=== PATIENT | female | born 1985 | race Caucasian/White ===

== ENCOUNTER 2019-04-17 15:44 | Outpatient (RCR) | payer BC, SELFPAY ==
[2019-04-17 16:12] VITALS: BP 120/68; PULSE 99
== END 2019-05-07 07:13 | disposition home or self-care (01) ==
LOC: ANHOBOP 15:44
PROVIDERS: Visit Provider Obstetrics & Gynecology
DX: P59.9 Neonatal jaundice, unspecified (principal)
CPT/HCPCS: 59025

== ENCOUNTER 2019-04-17 15:46 | Outpatient (RCR) | payer OTHER, SELFPAY ==
[2019-02-08 10:07] LABS: Hematocrit 37.2 % (37.0-47.0); Hemoglobin 12.9 g/dL (12.0-15.0)
[2019-02-08 10:13] LABS: Glucose 1 Hour PP 50gm Dose 154 mg/dL
[2019-02-08 10:54] LABS: HIV 1/2 Ab P24 Ag Result Negative (Negative)
[2019-02-09] MEDS: RHO(D) IMMUNE GLOBULIN 300 MCG SYRINGE IM (08:58)
[2019-02-09 09:41] LABS: Rapid Plasma Reagin Non-Reactive (NonReactive)
== END 2019-05-09 23:59 | disposition home or self-care (01) ==
LOC: ANHLAB 15:46
PROVIDERS: Visit Provider Advanced Practice Midwife
DX: Z36.89 Encounter for other specified antenatal screening (principal); Z29.13 Encounter for prophylactic Rho(D) immune globulin; O36.0990 Maternal care for other rhesus isoimmunization, unspecified trimester, not applicable or unspecified; Z3A.00 Weeks of gestation of pregnancy not specified
CPT/HCPCS: 36415; 82947; 85014; 85018; 86592; 86703; 90384; 96372; G0432; J2790

== ENCOUNTER 2019-04-20 12:20 | Outpatient (CLI) | payer BC, SELFPAY ==
[2019-04-20 12:50] VITALS: BP 126/83; PULSE 103; TEMP 36.6
[2019-04-20 13:00] VITALS: BP 121/78
[2019-04-20 13:02] LABS: Basophils Percent Auto 0.3 % (0.2-1.2); Eosinophils Absolute Auto 0.1 K/mm3 (0-0.3); Eosinophils Percent Auto 1.1 % (0-4.4); Hematocrit 38.9 % (37.0-47.0); Hemoglobin 13.2 g/dL (12.0-15.0); Immature Granulocyte Absolute 0.04 K/mm3 (0.00-0.031); Immature Granulocyte Percent A 0.4 % (0-0.5); Lymphocytes Percent Auto 19.3 % (18.3-44.2); Mean Corpuscular HGB Conc 33.9 g/dl (32-36); Mean Corpuscular Volume 91.3 fl (80-100); Mean Platelet Volume 10.9 fl (7.4-10.4); Monocytes Absolute Auto 0.7 K/mm3 (0.1-0.6); Monocytes Percent Auto 7.9 % (2.6-8.5); Neutrophils Absolute Auto 6.6 K/mm3 (1.3-6.7); Platelet Count Result 246 k/mm3 (150-375); Red Blood Count 4.26 M/mm3 (4.2-5.4); Red Cell Distribution Width 12.3 % (11.5-14.5); White Blood Count 9.3 K/mm3 (4.5-10.0)
[2019-04-20 13:04] LABS: Add Urine Microscopic? NO; Appearance Urine Clear (Clear); Bilirubin Urine Negative (Negative); Blood Urine Negative (Negative); Color Urine Yellow (Yellow); Glucose Urine UA Negative (Negative); Ketones Urine Negative (Negative); Leukocyte Esterase Ur Negative LEU/UL (NEGATIVE); Nitrate Urine Negative (Negative); Protein Urine Negative (Negative); Specific Grav Ur 1.014 (1.001-1.035); Urobilinogen Urine Negative mg/dL (<2.0)
[2019-04-20 13:13] LABS: Creatinine Urine 61.9 mg/dL; Total Protein Urine Random 11 mg/dL
[2019-04-20 13:15] LABS: Alanine Aminotransferase 13 U/L (4-35); Albumin Level 3.2 g/dL (3.5-5.1); Alkaline Phosphatase 166 U/L (38-126); Aspartate Amino Transferase 24 U/L (14-36); Bilirubin,Total 0.3 mg/dL (0.2-1.3); Blood Urea Nitrogen 10 mg/dL (7-17); Calcium 9.2 mg/dL (8.4-10.2); Carbon Dioxide 20 mmol/L (22-30); Chloride 109 mmol/L (98-107); Estimated Glomerular Filt Rate > 60; Glucose 86 mg/dL (65-105); Sodium 133 mmol/L (137-145); Uric Acid 3.6 mg/dL (2.5-7.5)
[2019-04-20 13:30] VITALS: BP 122/77
[2019-04-20 13:35] VITALS: BP 126/83; PULSE 103
--- NOTE | 2019-04-20 14:00 | PC.NURSE ---
1354- called read lab results and bp's, discharge orders received.
--- NOTE | 2019-04-20 14:00 | PC.NURSE ---
1220-Pt was sent from 's office for swelling and elevated bp. PIH orders received.
[2019-04-20 14:08] VITALS: BP 126/83
== END 2019-04-20 14:00 | disposition home or self-care (01) ==
LOC: ANHOBOP 12:27 → ANHOBPP 13:46
PROVIDERS: Family Provider Obstetrics & Gynecology; Visit Provider Obstetrics & Gynecology
DX: O13.9 Gestational [pregnancy-induced] hypertension without significant proteinuria, unspecified trimester (principal); Z3A.00 Weeks of gestation of pregnancy not specified
CPT/HCPCS: 36415; 59025; 80053; 81003; 82570; 84156; 84550; 85025; 87086

== ENCOUNTER 2019-05-02 09:59 | Outpatient (CLI) | payer BC, SELFPAY | END 2019-05-02 11:55 | disposition home or self-care (01) | LOC: ANHOBOP 10:49 | PROVIDERS: Visit Provider Obstetrics & Gynecology | DX: O42.12 Full-term premature rupture of membranes, onset of labor more than 24 hours following rupture (principal); Z3A.00 Weeks of gestation of pregnancy not specified | CPT/HCPCS: 84112 ==

== ENCOUNTER 2019-05-03 07:47 | Observation (INO) | payer BC, SELFPAY ==
[2019-05-03 08:00] VITALS: BMI 37.4
--- NOTE | 2019-05-03 10:34 | OBADM ---
This patient, Janay Song, admitted to the OB room Labor/Delivery/Recovery 107 for observation. Patient/family oriented to hospital policies and general routines including ID bracelet, bed and alarms, visiting hours, pain management, procedures, bathroom and other care routines, personal items, smoking policy, room service/diet, and visiting hours. Patient/Family are encouraged to report perceived risks to care and to ask questions if they do not understand what they are told or what they should do.
--- NOTE | 2019-06-02 20:45 | PM.OBTRLD ---
OB - Triage/Final Diagnosis Visit Information Date of evaluation: 05/05/19 Final Diagnosis (1) Amniotic fluid leaking: Code(s): O42.90 - Premature rupture of membranes, unspecified as to length of time between rupture and onset of labor, unspecified weeks of gestation Status: Acute
== END 2019-05-03 10:23 | disposition home or self-care (01) ==
PROVIDERS: Admitting Provider Obstetrics & Gynecology; Visit Provider Obstetrics & Gynecology
DX: O60.00 Preterm labor without delivery, unspecified trimester (principal); Z3A.00 Weeks of gestation of pregnancy not specified
CPT/HCPCS: G0378; G0379

== ENCOUNTER 2019-05-04 06:13 | Inpatient (IN) | payer BC, SELFPAY ==
[2019-05-04] VITALS (148 sets, daily range): BP systolic 95–155; BP diastolic 55–120; PULSE 64–123; RESP 16; TEMP 36.5–37.8; O2SAT 96–100; BMI 34.8
[2019-05-04 06:47] LABS: Glucose Point of Care 87 (65-105)
[2019-05-04 06:52] LABS: Basophils Percent Auto 0.2 % (0.2-1.2); Eosinophils Absolute Auto 0.2 K/mm3 (0-0.3); Eosinophils Percent Auto 1.8 % (0-4.4); Hematocrit 38.6 % (37.0-47.0); Hemoglobin 13.2 g/dL (12.0-15.0); Immature Granulocyte Absolute 0.07 K/mm3 (0.00-0.031); Immature Granulocyte Percent A 0.5 % (0-0.5); Lymphocytes Percent Auto 12.3 % (18.3-44.2); Mean Corpuscular HGB Conc 34.2 g/dl (32-36); Mean Corpuscular Hemoglobin 30.6 pg (26-34); Mean Corpuscular Volume 89.4 fl (80-100); Mean Platelet Volume 11.7 fl (7.4-10.4); Monocytes Absolute Auto 0.7 K/mm3 (0.1-0.6); Monocytes Percent Auto 5.4 % (2.6-8.5); Neutrophils Absolute Auto 10.4 K/mm3 (1.3-6.7); Neutrophils Percent Auto 79.8 % (45.5-73.1); Platelet Count Result 234 k/mm3 (150-375); Red Blood Count 4.32 M/mm3 (4.2-5.4); Red Cell Distribution Width 12.3 % (11.5-14.5)
[2019-05-04] MEDS: LACTATED RINGERS 1,000 ML 999 ML IV CONT (06:54)
--- NOTE | 2019-05-04 07:15 | LDADM ---
This patient, Janay Song, was admitted to Labor/Delivery/Recovery 108 on 05/04/19 at 06:13. Plans for labor, pain management and were discussed with patient. Patient/family oriented to hospital policies and general routines including ID bracelet, bed and alarms, visiting hours, pain management, procedures, bathroom and other care routines, personal items, smoking policy, room service/diet and guest tray routines, security routines, and visiting hours. Patient/Family are encouraged to report perceived risks to care and to ask questions if they do not understand what they are told or what they should do. See OBIX for further documentation.
--- NOTE | 2019-05-04 07:26 | WPDOBADMIT ---
Obstetrics - Admit Note Admission Note: record reviewed. No pertinent additions to the history and/or any subsequent changes in the physical findings that are not consistent with the expected course of the were found. Pt arrived in labor to , was planned induction today for GDM, on metformin. SVE 6/100/-2, AROM, large amount of meconium fluid. anticipate vaginal delivery Additions to the history and/or subsequent changes in the physical findings follow. None.
[2019-05-04] MEDS: LACTATED RINGERS 1,000 ML 500 ML IV CONT (07:32)
[2019-05-04 08:53] LABS: Glucose Point of Care 88 (65-105)
[2019-05-04] MEDS: OXYTOCIN 30 UNITS/NS 500 ML 30 UNITS/500 ML BAG 6 UNITS IV CONT (09:51)
--- NOTE | 2019-05-04 10:07 | WPDANESEPP ---
Anes - Eval Pre Procedure Procedure: labor epidural Date/Time: 05/04/19 10:07 Pre Op Diagnosis: Induction of Labor Patient Data Age: 33 Gender: F Height: 1.7 m Weight: 100.9 kg Last Vital Signs Temp 36.6 C 05/04/19 08:00 Pulse 88 05/04/19 10:00 BP 106/69 05/04/19 10:00 Pulse Ox 99 05/04/19 10:05 Allergies Allergy/AdvReac Type Severity Reaction Status Date / Time No Known Allergies Allergy Verified 05/02/19 10:59 Home Medications Medication Instructions Recorded Confirmed Type PNV cmb#95-ferrous fumarate-FA 1 tablet PO DAILY 04/14/19 05/04/19 History [] metformin 500 mg PO DAILY 04/14/19 05/04/19 History Laboratory Tests 05/04/19 05/04/19 05/04/19 06:39 06:39 06:39 WBC 13.0 K/mm3 H K/mm3 (4.5-10.0) RBC 4.32 M/mm3 M/mm3 (4.2-5.4) Hgb 13.2 g/dL g/dL (12.0-15.0) Hct 38.6 % % (37.0-47.0) MCV 89.4 fl fl (80-100) MCH 30.6 pg pg (26-34) MCHC 34.2 g/dl g/dl (32-36) RDW 12.3 % % (11.5-14.5) Plt Count 234 k/mm3 k/mm3 (150-375) MPV 11.7 fl H fl (7.4-10.4) Immature Gran % (Auto) 0.5 % % (0-0.5) Neut % (Auto) 79.8 % H % (45.5-73.1) Lymph % (Auto) 12.3 % L % (18.3-44.2) [place] % (Auto) 5.4 % % (2.6-8.5) Eos % (Auto) 1.8 % % (0-4.4) Baso % (Auto) 0.2 % % (0.2-1.2) Lymph # (Auto) 1.60 K/mm3 K/mm3 (0.9-3.2) [place] # (Auto) 0.7 K/mm3 H K/mm3 (0.1-0.6) Eos # (Auto) 0.2 K/mm3 K/mm3 (0-0.3) Baso # (Auto) 0.0 K/mm3 K/mm3 (0.0-0.1) Abs Immat Gran (auto) 0.07 K/mm3 H K/mm3 (0.00-0.031) Absolute Neuts (auto) 10.4 K/mm3 H K/mm3 (1.3-6.7) Absolute Nucleated RBC 0.0 K/mm3 K/mm3 (0.0-0.012) Nucleated RBC % 0.0 % % (0.0-0.2) POC Capillary Glucose RPR Pending Blood Type A Negative Antibody Screen Negative 05/04/19 05/04/19 06:41 08:51 WBC RBC Hgb Hct MCV MCH MCHC RDW Plt Count MPV Immature Gran % (Auto) Neut % (Auto) Lymph % (Auto) [place] % (Auto) Eos % (Auto) Baso % (Auto) Lymph # (Auto) [place] # (Auto) Eos # (Auto) Baso # (Auto) Abs Immat Gran (auto) Absolute Neuts (auto) Absolute Nucleated RBC Nucleated RBC % POC Capillary Glucose 87 mg/dl mg/dl 88 mg/dl mg/dl (65-105) (65-105) RPR Blood Type Antibody Screen Patient hx anesthesia problems: none Family hx anesthesia problems: none [facility] Family History Family History (System 05/02/19 @ 10:59 by Dee Dee Justice) Other Unknown family medical history Social History Social History (System 05/02/19 @ 10:59 by Dee Dee Justice) Smoking status: Never smoker Second hand tobacco smoke exposure: No Substance use: never Spiritual care concerns: No Exam Day of Procedure 05/04/19 10:07 Patient weight: obese Heart: regular rate and rhythm Lungs: normal air movement Airway: Mallampati scale class II Neurological: alert and oriented
[2019-05-04] MEDS: LACTATED RINGERS 1,000 ML 125 ML IV CONT (10:36)
[2019-05-04 10:45] LABS: Glucose Point of Care 63 (65-105)
[2019-05-04 12:43] LABS: Glucose Point of Care 57 (65-105)
[2019-05-04 13:44] LABS: Glucose Point of Care 74 (65-105)
--- NOTE | 2019-05-04 16:17 | PM.OBPRVD ---
OB - Delivery Note Procedure Delivery date: 05/04/19 events: Gestational Diabetes and Induced HTN Intrapartal events: Febrile Induction method: AROM and per pitocin protocol Delivery monitor: external FHT and external uterine Route of delivery: Episiotomy description: Left Mediolateral Laceration description: Labial (right and left) Delivery repair: vicryl Specimen: Yes Estimated blood loss (mL): 482 Anesthesia type: Epidural Disposition: other () Narrative: head delivered and unable to deliver past cheecks, LML and posterior shoulder reached and baby slowly delivered body. baby to warmer for meconium and skin to skin prior my departure [place] Baby Date of : 05/04/19 Time of : 15:45 Weeks of gestation at delivery: 38 Infant gender: Female Weight (pounds): 9 Weight (ounces): 6 presentation: vertex position: Left Occiput Anterior Placenta delivery description: Spontaneous cord vessel description: 3 Vessels and Clamped/Cut score one minute: 8 score five minutes: 9
[2019-05-04] MEDS: OXYTOCIN 30 UNITS/NS 500 ML 30 UNITS/500 ML BAG 125 UNITS IV CONT (16:23)
[2019-05-04] MEDS: IBUPROFEN 600 MG TABLET PO (17:39)
[2019-05-04] MEDS: BENZOCAINE 20% AER SPR (*SP) 56 GM CAN 1 SPRAY TOPICAL (17:40)
[2019-05-04] MEDS: WITCH HAZEL 40 PADS 1 PAD TOPICAL (17:42)
[2019-05-05 05:52] LABS: Hematocrit 30.1 % (37.0-47.0); Hemoglobin 9.9 g/dL (12.0-15.0)
[2019-05-05 08:00] VITALS: BP 114/60; PULSE 101; RESP 18; TEMP 36.4
--- NOTE | 2019-05-05 10:36 | WPDANLDPN2 ---
Anes-Prog Note L&D Date/Time: 05/05/19 10:36 Comfortable throughout: labor and delivery Neuraxial method: epidural Epidural/Spinal procedure site: clean & non-tender Neuro status: Neuro function grossly intact. Cardiovascular status: normal Respiratory status: normal Airway patency: baseline Mental status: baseline Post-Op hydration status: normal Vital Signs: Last Vital Signs Temp 36.8 C 05/04/19 18:55 Pulse 92 05/04/19 18:55 Resp 16 05/04/19 18:55 BP 120/64 05/04/19 18:55 Pulse Ox 100 05/04/19 14:24 I/O: Intake & Output 05/04/19 05/05/19 05/05/19 23:59 07:59 15:59 Intake Total 1999 Balance 1999 Post-procedural complaints: none Patient feedback: Patient satisfied with anesthetic care.
[2019-05-05] MEDS: MULTIVIT/MIN/PREN/FOL AC/IRON TABLET 1 TAB PO (11:01)
[2019-05-05] MEDS: POLYSACCHARIDE IRON COMPLEX 150 MG CAPSULE PO ×2 (11:01→17:51)
[2019-05-05] MEDS: IBUPROFEN 600 MG TABLET PO ×2 (11:01→17:50)
[2019-05-05] MEDS: DOCUSATE SODIUM 100 MG CAPSULE PO ×2 (11:01→17:50)
--- NOTE | 2019-05-05 13:49 | PM.OBPNVD ---
OB - PN: Subj Subjective Date/time seen: 05/05/19 13:49 Patient comments: no complaints, pain well controlled, incisional pain, tolerating diet and flatus present OB - PN: Obj Data Labs CBC & Chem 7: 05/05/19 04:55 Labs: Laboratory Results - last 24 hr 05/05/19 04:55 Hgb 9.9 L D Hct 30.1 L OB - PN A/P Plan day: 1 Plan: routine care Comments: No problems, routine care Time Spent With Patient Time: Total time spent is greater than 50% in coordination of care (as documented) at patient's floor/unit and/or counseling patient: Exam Const: General: comfortable, no acute distress and alert Resp: Effort & Inspection: normal respiratory effort Auscultation: no crackles, no rales and no rhonchi Cardio: Rate: regular rate Heart sounds: no click, no murmurs and no rubs GI: Inspection: non-distended GI Palp: No Tenderness to palpation present (GI) Auscultation: normal bowel sounds Other: Incision - CDI Extrem: General: normal to inspection, no pedal edema and no calf tenderness
[2019-05-05 19:00] VITALS: BP 124/88; PULSE 69; RESP 18; TEMP 36.4; O2SAT 100
--- NOTE | 2019-05-05 23:24 | PC.NURSE ---
Patient viewed the discharge video Mother & Baby Care, The First Two Weeks . Patient was given the opportunity and encouraged to ask questions. Patient verbalized understanding of information shared and has been given the mother/baby guide for home reference.
[2019-05-06 07:35] VITALS: BP 118/75; PULSE 84; RESP 18; TEMP 36.6
[2019-05-06] MEDS: MULTIVIT/MIN/PREN/FOL AC/IRON TABLET 1 TAB PO (08:03)
[2019-05-06] MEDS: DOCUSATE SODIUM 100 MG CAPSULE PO (08:03)
[2019-05-06] MEDS: POLYSACCHARIDE IRON COMPLEX 150 MG CAPSULE PO (08:03)
[2019-05-06] MEDS: IBUPROFEN 600 MG TABLET PO (08:04)
--- NOTE | 2019-05-06 12:47 | PM.OBPNVD ---
OB - PN: Subj Subjective Date/time seen: 05/06/19 12:47 Patient comments: no complaints, pain well controlled and tolerating diet OB - PN: Obj Data Labs CBC & Chem 7: 05/05/19 04:55 OB - PN A/P Plan day: 2 Plan: routine care and discharge home Time Spent With Patient Time: Total time spent is greater than 50% in coordination of care (as documented) at patient's floor/unit and/or counseling patient: Exam Const: General: comfortable and no acute distress Resp: Effort & Inspection: normal respiratory effort Auscultation: no rales, no rhonchi and no wheezes Cardio: Rate: regular rate Heart sounds: no click, no murmurs and no rubs GI: GI Palp: Yes Soft to palpation and No Tenderness to palpation present (GI) Auscultation: normal bowel sounds Extrem: General: normal to inspection, no pedal edema and no calf tenderness
--- NOTE | 2019-05-06 12:49 | PM.OBDSVD ---
DS: Diagnosis Discharge Diagnosis (1) Term delivered: Onset Date: ~04/2019 Code(s): O80 - Encounter for full-term uncomplicated delivery Status: Acute OB - DS: Summary OB Procedures : NST and Ultrasound OB Procedures Intrapartum: Spontaneous Vag Delivery OB Procedures: : None Peripartum Data Infant Delivery Method: Natural Vaginal Status at Discharge Functional status at discharge: independent ambulation Time Spent with Patient Time attestation: Total time spent providing and/or coordinating discharge services: DS: Data Data Completed and Pending Pending studies at discharge: Pending at discharge 05/04/19 15:52 Surgical [PTH] Routine Discharge Plan Discharge Attending physician on discharge: Sherrill Stack Discharging Clinician: Sherrill Stack Patient Disposition: Home, Self-Care Activity: pelvic rest Diet: regular Discharge Instructions: Education: Mom and Baby Guide and Preeclampsia Handout Given to: Mother Follow-Up: Call your delivering provider's office for an appointment to be seen in: 4 Weeks Mom and baby should come [facility] the [facility] for the follow-up appointment. Appointment Date/Time: May 07, 2019 at 9:00 am What to expect at your follow-up visit: Physical Assessment Call [phone] if you are unable to keep your appointment time. BREAST CARE: 1. Wear a snug supportive bra. 2. For engorgement discomfort: Breast Feeding: A. Apply warm moist washcloths B. Express milk as needed to relieve engorgement C. Wear loose clothing Bottle Feeding: A. May apply ice packs 3. For sore nipples: A. Identify correct latch-on B. Apply warm moist washcloths before and after nursing C. Air dry nipples after nursing D. May apply Lansinoh cream to nipples EPISIOTOMY/PERINEAL CARE: 1. Until bleeding stops, use your debby bottle after urinating 2. Change your pad frequently throughout the day 3. You may take sitz baths several times a day (fill your bathtub with warm water and soak for 20 minutes.) Do NOT bathe in the water 4. No tub baths until seen by your physician - You may shower ACTIVITY: 1. Rest as much as possible. 2. Do not exercise or lift anything heavier than your baby (such as laundry or other children.) 3. Avoid stairs or driving as much as possible. 4. Do not put anything into the vagina. No douching, tampons, or sexual activity until seen by physician. NOTIFY PHYSICIAN IF YOU HAVE ANY QUESTIONS OR IF ANY OF THE FOLLOWING SYMPTOMS OCCUR: 1. If your episiotomy becomes red, swollen, or more painful than what you have experienced in the hospital. 2. If your vaginal bleeding becomes foul smelling. 3. If your vaginal bleeding becomes more heavy than a period or if your bleeding changes from pink to bright red. However, you may pass an occasional walnut-sized clot once or twice for the first week . 4. If you experience a sharp, shooting pain in you calves. 5. If you discover a hard, reddened area on your breast or if you experience flu-like symptoms. DIET: 1. Eat regular, well-balanced meals. 2. Drink plenty of fluids daily. If , drink to thirst. Stand Alone Forms: General Discharge Information Follow-up/Referrals: Sherrill Stack MD [Physician] - Discharge Medications: Continued PNV cmb#95-ferrous fumarate-FA [] 28 mg iron- 800 mcg Tablet 1 tablet PO DAILY RF: 0 Discontinued metformin 500 mg Tablet 500 mg PO DAILY RF: 0 Date of admission: 05/04/19 06:13 Primary Care Provider: UNKNOWN,DOCTOR Admitting Provider: Sherrill Stack Attending physician on admission: Sherrill Stack
[2019-05-07 07:28] LABS: Rapid Plasma Reagin Non-Reactive (NonReactive)
[2019-05-07 09:38] VITALS: BP 124/66; PULSE 72; RESP 18; TEMP 36.9
== END 2019-05-06 13:23 | disposition home or self-care (01) | DRG 807 ==
LOC: ANHLDR 06:17 → ANHOB2 19:02
PROVIDERS: Advanced Practice Midwife; Admitting Provider Obstetrics & Gynecology; Visit Provider Obstetrics & Gynecology
DX: O24.425 Gestational diabetes mellitus in childbirth, controlled by oral hypoglycemic drugs (principal); Z37.0 Single live birth; Z3A.39 39 weeks gestation of pregnancy; O77.0 Labor and delivery complicated by meconium in amniotic fluid; O71.82 Other specified trauma to perineum and vulva; O99.214 Obesity complicating childbirth; E66.9 Obesity, unspecified; O13.4 Gestational [pregnancy-induced] hypertension without significant proteinuria, complicating childbirth
CPT/HCPCS: 36415; 85014; 85018; 85025; 86592; 86850; 86900; 86901; 88307; A9270; J2590; J2795; J7120

== ENCOUNTER 2021-01-29 11:18 | Observation (INO) | payer BC, SELFPAY ==
[2021-01-29 11:53] VITALS: BP 124/76; PULSE 86
[2021-01-29 12:00] VITALS: TEMP 36.8
[2021-01-29 12:01] VITALS: BP 113/73; PULSE 78
[2021-01-29 12:30] VITALS: BMI 32.3
--- NOTE | 2021-01-29 12:30 | OBADM ---
This patient, Janay Song, admitted to the OB room 116 at 118 for observation for left upper abdominal pain. Patient/family oriented to hospital policies and general routines including ID bracelet, bed and alarms, visiting hours, pain management, procedures, bathroom and other care routines, personal items, smoking policy, room service/diet, and visiting hours. Patient/Family are encouraged to report perceived risks to care and to ask questions if they do not understand what they are told or what they should do.
[2021-01-29 13:01] VITALS: BP 113/69; PULSE 80
--- NOTE | 2021-03-08 17:07 | PM.OBTRLD ---
OB - Triage/Final Diagnosis Visit Information Comments/Additional reasons for admission: I have assessed the risk for this patient, Janay Song, and determined that she would benefit from observation care. Final Diagnosis (1) Abdominal pain: Code(s): R10.9 - Unspecified abdominal pain Status: Acute
== END 2021-01-29 13:36 | disposition home or self-care (01) ==
PROVIDERS: Admitting Provider Obstetrics & Gynecology; Visit Provider Obstetrics & Gynecology
DX: O26.892 Other specified pregnancy related conditions, second trimester (principal); R10.9 Unspecified abdominal pain; Z3A.22 22 weeks gestation of pregnancy
CPT/HCPCS: G0378; G0379

== ENCOUNTER 2021-03-06 08:06 | Outpatient (RCR) | payer OTHER, SELFPAY ==
[2021-03-06 09:55] LABS: Hemoglobin 13.4 g/dL (12.0-15.0)
[2021-03-06 10:05] LABS: Glucose 1 Hour PP 50gm Dose 119 mg/dL
[2021-03-06 10:45] LABS: HIV 1/2 Ab P24 Ag Result Negative (Negative)
[2021-03-06] MEDS: RHO(D) IMMUNE GLOBULIN 300 MCG/2 ML SYRINGE IM (13:49)
[2021-03-09 10:55] LABS: Rapid Plasma Reagin Non-Reactive (NonReactive)
== END 2021-06-04 23:59 | disposition home or self-care (01) ==
LOC: ANHLAB 08:06
PROVIDERS: Visit Provider Obstetrics & Gynecology
DX: Z11.4 Encounter for screening for human immunodeficiency virus [HIV] (principal); Z29.13 Encounter for prophylactic Rho(D) immune globulin; O36.0190 Maternal care for anti-D [Rh] antibodies, unspecified trimester, not applicable or unspecified; Z3A.00 Weeks of gestation of pregnancy not specified
CPT/HCPCS: 36415; 82947; 85014; 85018; 85461; 86592; 86703; 90384; 96372; G0432; J2790

== ENCOUNTER 2021-05-25 04:55 | Inpatient (IN) | payer OTHER, SELFPAY ==
[2021-05-25] VITALS (50 sets, daily range): BP systolic 108–125; BP diastolic 53–84; PULSE 66–106; RESP 16–18; TEMP 36.3–36.6; O2SAT 96–100; BMI 37.6
--- OUTSIDE RECORDS SUMMARY | 2021-05-25 04:59 | XMS_ITS ---
:1985 Author Care Team Providers Name Role Phone Luis Enrique Morales Primary Care Provider Unavailable Allergies Code Code System Name Reaction Severity Status Onset 58997 RxNorm Tioconazole Other Mild to Active 02/11/20 20 Moderate Medications Name Status Start Date Stop Date ? ? fluconazole 150 mg tablet Completed ? 2019 1.5/30 (28) 1.5 mg-30 mcg (21)/75 mg (7) tablet Unknown ? Not available TAKE 1 TABLET BY MOUTH DAILY metformin 500 mg tablet Completed 03/30/2019 10/29/19 take 1 tablet by oral route 1 time every day with evening meal methylprednisolone 4 mg tablets in Completed ? 06/05/2019 a dose pack 400 mcg chewable tablet Active ? Not available Problems Name Status Onset Date Source ? Detection Examination Unknown 10/13/[address] Concept Unknown 10/13/2018 History Gestation Period, 10 Weeks Unknown 10/17/2018 Histo ry Rubella Screening Status Unknown 11/03/2018 History Screening Unknown 11/03/2018 History , Childbirth and Puerperium Unknown 11/03/2018 History Finding Test Negative Unknown 12/01/2018 History Normal in Multigravida Unknown 12/01/2018 History Screening for Malformation Unknown 12/25/2018 History Hemorrhagic Complication of Unknown 01/26/2019 History Placenta Previa Unknown 01/26/2019 History Gestation Period, 24 Weeks Unknown 01/26/2019 Histo ry , Childbirth and Puerperium Unknown 01/26/2019
--- OUTSIDE RECORDS SUMMARY | 2021-05-25 04:59 | XMS_ITS | Encounter Summary ---
:1985 Author Reason for Visit OB visit OB [id number] EDC 05/30/2021 LMP 08/23/2020 Assessment and Plan Assessment Note Patient is _36__weeks . Dis cussed plan. 1. Routine care Discussion Note: None recorded.Patient educational handouts: No information available. Plan of Care Reminders Provider Appointments Surg Post 06/01/2021 Yuliana Abla Op 2:30PM MD [facility] Lab None ? ? recorded. Referral None ? ? recorded. Procedures None ? ? recorded. Surgeries None ? ? recorded. Imaging None ? ? recorded. Medications Name Start Date ? ? 400 mcg chewable tablet ? Medications Administered None recorded. Vitals Height Weight BMI Blood Pressure 5 ft 6 in 237 lbs 38.3 kg/m2 136/82 mm[Hg] Results Lab Results None recorded. Allergies Code Code System Name Reaction Severity Onset 85215 RxNorm Tioconazole Other Mild to Moderate 020 Problems Name Status Onset Date Source ? Gestational Diabetes Mellitus Active 04/20/2019 Hi story Active 11/24/2020 ? History of SARS-CoV-2
--- OUTSIDE RECORDS SUMMARY | 2021-05-25 04:59 | XMS_ITS | Encounter Summary ---
:1985 Author Reason for Visit OB visit Assessment and Plan Assessment Note Patient is ___weeks . Discu ssed plan. 1. Routine care Discussion Note: None recorded.Patient educational handouts: No information available. Plan of Care Reminders Provider Appointments Surg Post 06/01/2021 Yuliana Alba Op 2:30PM MD [facility] Lab None ? ? recorded. Referral None ? ? recorded. Procedures None ? ? recorded. Surgeries None ? ? recorded. Imaging None ? ? recorded. Medications Name Start Date ? ? 400 mcg chewable tablet ? Medications Administered None recorded. Vitals Height Weight BMI Blood Pressure 5 ft 6 in 235 lbs 37.9 kg/m2 122/77 mm[Hg] Results Lab Results None recorded. Allergies Code Code System Name Reaction Severity Onset 51202 RxNorm Tioconazole Other Mild to Moderate 020 Problems Name Status Onset Date Source ? Gestational Diabetes Mellitus Active 04/20/2019 Hi story Active 11/24/2020 ? History of SARS-CoV-2 Active 04/14/2021 ? Procedures
--- OUTSIDE RECORDS SUMMARY | 2021-05-25 04:59 | XMS_ITS | Encounter Summary ---
:1985 Author Reason for Visit None recorded. Assessment and Plan 1. Large for gestation age fetus ? US, obstetric, follow-up Discussion Note: None recorded.Patient educational handouts: No information available. Plan of Care Reminders Provider Appointments Surg Post 06/01/2021 Yuliana Stack, Op 2:30PM Lab None ? ? recorded. Referral None ? ? recorded. Procedures None ? ? recorded. Surgeries None ? ? recorded. Imaging US, 05/15/2021 [place] [facility], Follow-up Medications Name Start Date ? ? 400 mcg chewable tablet ? Medications Administered None recorded. Vitals None recorded. Results Lab Results None recorded. Allergies Code Code System Name Reaction Severity Onset 71994 RxNorm Tioconazole Other Mild to Moderate 020 Problems Name Status Onset Date Source ? Gestational Diabetes Mellitus Active 04/20/2019 Hi story Active 11/24/2020 ? History of SARS-CoV-2 Active 04/14/2021 ? Procedures Date Name Performed by ? 04/23/2021
--- OUTSIDE RECORDS SUMMARY | 2021-05-25 04:59 | XMS_ITS | Encounter Summary ---
:1985 Author Reason for Visit OB visit [id number] 05/30/2021 Assessment and Plan Assessment Note Patient is _38__weeks . Dis cussed plan. 1. Routine care [...] BMI Blood Pressure 5 ft 6 in 239 lbs 38.6 kg/m2 123/80 mm[Hg] Results Lab Results None recorded. Allergies Code Code System Name Reaction Severity Onset 19519 RxNorm Tioconazole Other Mild to Moderate 020 Problems Name Status Onset Date Source ? Gestational Diabetes Mellitus Active 04/20/2019 Hi story Active 11/24/2020 ? History of SARS-CoV-2 Active 04/15/19
--- OUTSIDE RECORDS SUMMARY | 2021-05-25 05:00 | XMS_ITS | Encounter Summary ---
:1985 Author Reason for Visit OB visit 34w5d Assessment and Plan 1. Routine care Discussion Note: None recorded.Patient [...] BMI Blood Pressure 5 ft 6 in 231 lbs 37.3 kg/m2 127/86 mm[Hg] Results Lab Results None recorded. Allergies Code Code System Name Reaction Severity Onset 85036 RxNorm Tioconazole Other Mild to Moderate 020 Problems Name Status Onset Date Source ? Gestational Diabetes Mellitus Active 04/20/2019 Hi story Active 11/24/2020 ? History of SARS-CoV-2 Active 04/14/2021 ? Procedures Date Name Performed by ?
--- OUTSIDE RECORDS SUMMARY | 2021-05-25 05:00 | XMS_ITS | Encounter Summary ---
:1985 Author Reason for Visit None recorded. Assessment and Plan 1. condition affecting obs tetrical care of mother ? US, obstetric, follow-up Discussion Note: None recorded.Patient educational handouts: No information available. Plan of Care Reminders Provider Appointments Surg Post 06/01/2021 Yuliana Stack, Op 2:30PM Lab None ? ? recorded. Referral None ? ? recorded. Procedures None ? ? recorded. Surgeries None ? ? recorded. Imaging US, 03/27/2021 [place] [facility], Follow-up Medications Name Start Date ? ? 400 mcg chewable tablet ? Medications Administered None recorded. Vitals None recorded. Results Lab Results None recorded. Allergies Code Code System Name Reaction Severity Onset 76134 RxNorm Tioconazole Other Mild to Moderate 020 Problems Name Status Onset Date Source ? Gestational Diabetes Mellitus Active 04/20/2019 Hi story Active 11/24/2020 ? History of SARS-CoV-2 Active 04/14/2021 ? Procedures Date Name Performed by ?
--- OUTSIDE RECORDS SUMMARY | 2021-05-25 05:00 | XMS_ITS | Encounter Summary ---
[...] Surgeries None ? ? recorded. Imaging US, 04/23/2021 [place] [facility], Follow-up Medications Name Start Date ? ? 400 mcg chewable tablet ? Medications Administered None recorded. Vitals None recorded. Results Lab Results None recorded. Allergies Code Code System Name Reaction Severity Onset 21939 RxNorm Tioconazole Other Mild to Moderate 020 Problems Name Status Onset Date Source ? Gestational Diabetes Mellitus Active 04/20/2019 Hi story Active 11/24/2020 ? History of SARS-CoV-2 Active 04/14/2021 ? Procedures Date Name Performed by ? 03/27/2021
--- OUTSIDE RECORDS SUMMARY | 2021-05-25 05:00 | XMS_ITS | Encounter Summary ---
:1985 Author Reason for Visit OB visit 32w5d Assessment and Plan 1. Routine care Discussion [...] BMI Blood Pressure 5 ft 6 in 228 lbs 36.8 kg/m2 120/83 mm[Hg] Results Lab Results None recorded. Allergies Code Code System Name Reaction Severity Onset 25469 RxNorm Tioconazole Other Mild to Moderate 020 Problems Name Status Onset Date Source ? Gestational Diabetes Mellitus Active 04/20/2019 Hi story Active 11/24/2020 ? History of SARS-CoV-2 Active 04/14/2021 ? Procedures Date Name Performed by ?
--- OUTSIDE RECORDS SUMMARY | 2021-05-25 05:00 | XMS_ITS | Encounter Summary ---
:1985 Author Reason for Visit OB visit OB [id number] EDC 05/30/2021 LMP 08/23/2020 Assessment and Plan Assessment Note Patient is _30__weeks . Dis cussed plan. 1. Routine care [...] BMI Blood Pressure 5 ft 6 in 222 lbs 35.8 kg/m2 122/80 mm[Hg] Results Lab Results None recorded. Allergies Code Code System Name Reaction Severity Onset 64362 RxNorm Tioconazole Other Mild to Moderate 020 Problems Name Status Onset Date Source ? Gestational Diabetes Mellitus Active 04/20/2019 Hi story Active 11/24/2020 ? History of SARS-CoV-2
[2021-05-25 05:26] LABS: Basophils Absolute Auto 0.1 K/mm3 (0.0-0.1); Basophils Percent Auto 0.6 % (0.2-1.2); Eosinophils Absolute Auto 0.2 K/mm3 (0-0.3); Eosinophils Percent Auto 2.2 % (0-4.4); Hematocrit 38.6 % (37.0-47.0); Hemoglobin 13.1 g/dL (12.0-15.0); Immature Granulocyte Absolute 0.04 K/mm3 (0.00-0.031); Immature Granulocyte Percent A 0.5 % (0-0.5); Lymphocytes Absolute Auto 2.18 K/mm3 (0.9-3.2); Lymphocytes Percent Auto 26.7 % (18.3-44.2); Mean Corpuscular HGB Conc 33.9 g/dl (32-36); Mean Corpuscular Hemoglobin 31.3 pg (26-34); Mean Corpuscular Volume 92.3 fl (80-100); Mean Platelet Volume 10.7 fl (7.4-10.4); Monocytes Absolute Auto 0.6 K/mm3 (0.1-0.6); Monocytes Percent Auto 7.8 % (2.6-8.5); Neutrophils Absolute Auto 5.1 K/mm3 (1.3-6.7); Neutrophils Percent Auto 62.2 % (45.5-73.1); Platelet Count Result 225 k/mm3 (150-375); Red Blood Count 4.18 M/mm3 (4.2-5.4); Red Cell Distribution Width 12.7 % (11.5-14.5); White Blood Count 8.2 K/mm3 (4.5-10.0)
[2021-05-25] MEDS: LACTATED RINGERS 1,000 ML 125 ML IV CONT (06:07)
--- NOTE | 2021-05-25 06:19 | LDADM ---
This patient, Janay Song, was admitted to Labor/Delivery/Recovery 120 on 05/25/21 at 04:55. Plans for labor, pain management and were discussed with patient. Patient/family oriented to hospital policies and general routines including ID bracelet, bed and alarms, visiting hours, pain management, procedures, bathroom and other care routines, personal items, smoking policy, room service/diet and guest tray routines, security routines, and visiting hours. Patient/Family are encouraged to report perceived risks to care and to ask questions if they do not understand what they are told or what they should do. See OBIX for further documentation.
--- NOTE | 2021-05-25 06:42 | WPDANESEPPF ---
Anes - Initial Pre Proc Eval Procedure: Operation Date: 05/25/21 07:30 Proposed Procedures p Section - Sherrill Stack MD Date/Time: 05/25/21 06:42 Surgeon: Sherrill Stack MD Pre Op Diagnosis: c/s Patient Data Age: 35 Gender: F Height: 1.7 m Weight: 109 kg Last Vital Signs Pulse 104 H 05/25/21 05:30 BP 112/71 05/25/21 05:30 Allergies Allergy/AdvReac Type Severity Reaction Status Date / Time tioconazole Allergy Other Verified 05/01/21 15:52 Home Medications Medication Instructions Recorded Confirmed Type PNV cmb#95-ferrous fumarate-FA 1 tablet PO DAILY 04/14/19 05/01/21 History [] aspirin 81 mg PO DAILY 05/01/21 05/01/21 History Laboratory Tests 05/25/21 05/25/21 05:20 05:20 WBC 8.2 K/mm3 K/mm3 (4.5-10.0) RBC 4.18 M/mm3 L M/mm3 (4.2-5.4) Hgb 13.1 g/dL g/dL (12.0-15.0) Hct 38.6 % % (37.0-47.0) MCV 92.3 fl fl (80-100) MCH 31.3 pg pg (26-34) MCHC 33.9 g/dl g/dl (32-36) RDW 12.7 % % (11.5-14.5) Plt Count 225 k/mm3 k/mm3 (150-375) MPV 10.7 fl H fl (7.4-10.4) Immature Gran % (Auto) 0.5 % % (0-0.5) Neut % (Auto) 62.2 % % (45.5-73.1) Lymph % (Auto) 26.7 % % (18.3-44.2) [place] % (Auto) 7.8 % % (2.6-8.5) Eos % (Auto) 2.2 % % (0-4.4) Baso % (Auto) 0.6 % % (0.2-1.2) Lymph # (Auto) 2.18 K/mm3 K/mm3 (0.9-3.2) [place] # (Auto) 0.6 K/mm3 K/mm3 (0.1-0.6) Eos # (Auto) 0.2 K/mm3 K/mm3 (0-0.3) Baso # (Auto) 0.1 K/mm3 K/mm3 (0.0-0.1) Abs Immat Gran (auto) 0.04 K/mm3 H K/mm3 (0.00-0.031) Absolute Neuts (auto) 5.1 K/mm3 K/mm3 (1.3-6.7) Absolute Nucleated RBC 0.0 K/mm3 K/mm3 (0.0-0.012) Nucleated RBC % 0.0 % % (0.0-0.2) RPR Pending Patient hx anesthesia problems: none Family hx anesthesia problems: none Results Review: All pre-operative results and documents have been reviewed as part of the pre-operative evaluation. [facility] Family History Family History Other Unknown family medical history Social History Social History Smoking status: Never smoker Second hand tobacco smoke exposure: No Substance use: never Spiritual care concerns: No Anes - Eval Final PreProcedure Day of Procedure 05/25/21 06:42 Patient weight: obese Heart: regular rate and rhythm Lungs: clear to auscultation Airway: Mallampati scale class II Neurological: alert and oriented Last oral intake: >/= 8 hours Emergent: no Anesthetic plan: proceed Anesthesia type and monitoring: regional spinal and standard monitoring Results Review: All pre-operative results and documents have been reviewed as part of the pre-operative evaluation. Informed Consent: The patient's anesthetic plan and its attendant risks and benefits were discussed with the patient/family/POA. Questions were solicited and answers provided to the satisfaction of the patient/family/POA.
--- NOTE | 2021-05-25 06:47 | PM.IMHP ---
H&P: HPI History of Present Illness Date/Time: 05/25/21 06:47 This patient is a 35-year-old multiparous female at 39 weeks gestation with a suspected macrosomic . We have agreed to perform delivery. she understands the procedure. We discussed it in detail. She understands that injuries may occur that result in hospitalization, more surgery, and severe illness. She understands the risk of hemorrhage and infection. She denies any nausea, vomiting, fever, chills. She denies any chest pain or shortness of breath. Chief Complaint: Macrosomia Review of Systems Review of Systems: All systems reviewed & are unremarkable except as noted in HPI and below Constitutional: Constitutional: Denies chills, Denies fatigue, Denies fever(s) and Denies weakness Eyes: Eyes: Denies blurry vision, Denies change in vision, Denies loss of peripheral vision, Denies loss of vision, Denies other visual disturbances and Denies eye pain ENT: Denies vertigo, Denies dizziness, Denies hearing loss, Denies mouth pain, Denies nasal obstruction, Denies neck mass and Denies neck pain Cardiovascular: Cardiovascular: Denies chest pain, Denies diaphoresis, Denies syncope, Denies leg edema and Denies dyspnea Respiratory: Respiratory: Denies chest congestion, Denies cough, Denies hemoptysis, Denies dyspnea and Denies wheezing Gastrointestinal: Gastrointestinal: Denies abdominal pain, Denies constipation, Denies diarrhea, Denies nausea and Denies vomiting Genitourinary: Genitourinary: Denies hematuria, Denies change in libido, Denies nocturia, Denies genital lesions, Denies flank pain and Denies urinary urgency Musculoskeletal: Musculoskeletal: Denies abnormal gait, Denies back pain, Denies myalgias, Denies arthralgias, Denies joint swelling, Denies muscle weakness and Denies neck pain Integumentary/Breasts: Skin/Breast: Denies swelling, Denies breast pain, Denies breast mass, Denies dry skin, Denies nipple discharge, Denies unusual bruising and Denies jaundice Neurologic: Denies Neuro-related abnormal movements, Denies Abnormal speech present, Denies abnormal gait, Denies behavioral changes, Denies confusion, Denies vertigo, Denies dizziness, Denies syncope, Denies loss of vision, Denies memory loss, Denies convulsions and Denies weakness Psychiatric: Psychiatric: Denies abnormal sleep pattern, Denies behavioral changes, Denies change in libido, Denies confusion, Denies depression, Denies anhedonia and Denies memory loss Endocrine: Endocrine: Reports no additional endocrine complaints, Denies change in libido and Denies fatigue Hematologic/Lymphatic: Hematologic/Lymphatic: Reports no additional hematologic/lymphatic complaints Allergic/Immunologic: Allergic/Immunologic: Reports no additional allergic/immunologic complaints and Denies wheezing COUNTS INCLUDE 234 BEDS AT THE [facility] Family History Family History Other Unknown family medical history Social History Social History Smoking status: Never smoker Second hand tobacco smoke exposure: No Substance use: never Spiritual care concerns: No Meds Home Medications and Allergies Home Medications Medication Instructions Recorded Confirmed Type PNV cmb#95-ferrous fumarate-FA 1 tablet PO DAILY 04/14/19 05/01/21 History [] aspirin 81 mg PO DAILY 05/01/21 05/01/21 History Allergies Allergy/AdvReac Type Severity Reaction Status Date / Time tioconazole Allergy Other Verified 05/01/21 15:52 Vital Signs Vital Signs - 24 hr 05/25/21 05:11 05/25/21 05:15 05/25/21 05:30 Pulse Rate 106 H 93 104 H Blood Pressure 123/73 123/84 112/71 Exam Const: General: cooperative, healthy appearing, comfortable and no acute distress; No confusion Orientation/consciousness: oriented to person, oriented to place, oriented to time and No confusion HENMT: Head: normal to inspection Ears: external ears ronald
--- NOTE | 2021-05-25 06:50 | WPDHPUPDATE1 ---
History and Physical Update Update Date/Time: 05/25/21 06:50 History and Physical has been reviewed, including an updated exam of the patient. There are NO changes in the patient's condition. Risks, benefits, and alternatives have been discussed and questions answered. Patient agrees to proceed with procedure.
[2021-05-25] MEDS: ceFAZolin 2 GM/D5W 50 ML 2 GM/50 ML BAG IVPB (06:53)
[2021-05-25 07:49] LABS: Rapid Plasma Reagin Non-Reactive (NonReactive)
--- NOTE | 2021-05-25 07:51 | W.PM.PROC2 ---
Procedure Note - Detailed Date of Procedure 05/25/21 Pre-op Diagnosis macrosomia. term Post-op Diagnosis Same Procedure Performed Low-transverse section Surgeon Sherrill Stack MD Anesthesia Spinal Indications macrosomia Findings Normal gestational maternal anatomy, 10# 5oz , normal Apgars. Description of Procedure The patient was taken the operating room. She was prepped and draped in dorsal supine position with a leftward tilt. This was done after spinal anesthetic was applied. A low-transverse skin incision was made and carried down till of the fascia with the knife. The fascial incision was made with the knife. The fascial incision was extended laterally with Salcido scissors. The fascia was tented upward superiorly and inferiorly the rectus muscles were dissected off bluntly. The rectus muscles were the midline. The preperitoneal fat and peritoneum were dissected open bluntly at the superior aspect of the rectus muscles. The peritoneal incision was extended superior and inferior with good position of bladder. The uterine incision was made with a scalpel down to the level of the amniotic cavity. The amniotic cavity was entered bluntly. The was delivered. The cord was clamped and cut and the was handed off to waiting pediatric staff. Cord bloods were obtained. The placenta was removed manually. The uterus was exteriorized. The uterus was cleared of all clots, debris and membranes. The uterus was closed in 0 Vicryl running lock fashion. An imbricating over a was placed along the incision line as well. The uterus was returned to the abdomen. The gutters were cleared of all clots and debris. The fascia was closed with 0 Vicryl running fashion. The subcutaneous tissue was irrigated pinpoint bleeders were cauterized. The skin was closed with subcuticular absorbable alonzo. The skin incision line was covered with glue. The patient tolerated the procedure well. She has taken recovery room in stable condition. Sponge lap and needle counts were correct x2. Estimated Blood Loss 500 Drains No Packing No Pathology None sent Complications No immediate complications Condition Stable Disposition PACU
[2021-05-25] MEDS: OXYTOCIN 30 UNITS/NS 500 ML 30 UNITS/500 ML BAG 125 UNITS IV CONT (08:14)
--- NOTE | 2021-05-25 09:58 | SUR.PHASEI ---
Pt going to room 282 for pp care. Awaiting call from PP RN when available for report. Pt resting without complaint. Call light within reach.
--- NOTE | 2021-05-25 11:08 | SUR.PHASEI ---
Report given to Eloisa Ontiveros RN. Pt going up to room 282 at this time for pp care.
--- NOTE | 2021-05-25 11:40 | PC.NURSE ---
Patient transferred to post room #282 via 1140. Support person present. Oriented to unit, room, information board, rooming in, admission packet and security measures. Patient verbalizes understanding.
[2021-05-25] MEDS: DEXTROSE 5%/0.45% SOD CHL 1,000 ML 125 ML IV CONT (12:15)
[2021-05-25] MEDS: KETOROLAC 30 MG/ML VIAL (*BKC) IV PUSH (12:15)
--- NOTE | 2021-05-25 14:21 | PC.NURSE ---
[id number] Introductions were made, then consulted with patient to assess needs related to . Mother led the conversation with her experience feeding her so far. Mother works well with her . Encouraged understanding of the benefits of skin to skin (unwrapping and placing vertically on her chest), responsive feeding and how to watch for early feeding signs, frequency of feeding on demand about every 8-12 times in 24 hours (every 2-3 hours), milk production, duration of feeding, signs of adequate intake/output and how to record on the feeding sheet. Reviewed positioning and ear, shoulder, hip alignment, supporting the breast, asymmetrical latch (off-center), and leading with the chin with a big open side gape. Infant latched optimally to the right breast in football position. Education given to mother of how to visualize suck/swallow ratios and drinking at the breast. Infant was able to maintain latch without discomfort to mother. Nipple care reviewed with optimal latch and good positioning. Reminding mother of comfort measures of healing with a warm and wet washcloth to rinse breast, then leave open to air-dry as needed. Reviewed good handwashing when or touching the breast/nipples to prevent infection. Resources used to facilitate learning were used with the mom and baby guide. Mother voiced understanding of responsive feedings, stimulating with skin to skin, hand expressed colostrum, touch, talking to to encourage if it has been 2 -3 hours since the start of the last , to call if infant does not latch or there is discomfort with . Reported to the primary RN.
[2021-05-26 00:07] VITALS: BP 125/77; PULSE 98; RESP 18; TEMP 37.2; O2SAT 97
[2021-05-26] MEDS: HYDROcodone/acetaminophen (*CRX) 5-325 MG TABLET 1 TAB PO ×5 (02:42→23:34)
[2021-05-26] MEDS: SIMETHICONE 80 MG TAB.CHEW PO ×4 (02:43→17:00)
[2021-05-26] MEDS: IBUPROFEN 600 MG TABLET PO ×4 (02:43→23:34)
[2021-05-26 04:15] VITALS: BP 106/69; PULSE 96; RESP 18; TEMP 36.7; O2SAT 96
[2021-05-26 06:01] LABS: Basophils Absolute Auto 0.1 K/mm3 (0.0-0.1); Basophils Percent Auto 0.4 % (0.2-1.2); Eosinophils Absolute Auto 0.2 K/mm3 (0-0.3); Eosinophils Percent Auto 1.6 % (0-4.4); Hematocrit 31.6 % (37.0-47.0); Hemoglobin 10.9 g/dL (12.0-15.0); Immature Granulocyte Absolute 0.04 K/mm3 (0.00-0.031); Immature Granulocyte Percent A 0.3 % (0-0.5); Lymphocytes Absolute Auto 1.74 K/mm3 (0.9-3.2); Lymphocytes Percent Auto 14.7 % (18.3-44.2); Mean Corpuscular HGB Conc 34.5 g/dl (32-36); Mean Corpuscular Hemoglobin 31.6 pg (26-34); Mean Corpuscular Volume 91.6 fl (80-100); Mean Platelet Volume 11.3 fl (7.4-10.4); Monocytes Absolute Auto 0.8 K/mm3 (0.1-0.6); Monocytes Percent Auto 6.4 % (2.6-8.5); Neutrophils Percent Auto 76.6 % (45.5-73.1); Platelet Count Result 224 k/mm3 (150-375); Red Blood Count 3.45 M/mm3 (4.2-5.4); Red Cell Distribution Width 13.2 % (11.5-14.5); White Blood Count 11.8 K/mm3 (4.5-10.0)
--- NOTE | 2021-05-26 07:48 | P.PNOB_ITS ---
OB - PN: Subj Subjective Date/time seen: 05/26/21 07:48 Patient comments: no complaints, pain well controlled, tolerating diet and flatus present OB - PN: Obj Data Labs CBC & Chem 7: 05/26/21 04:11 Labs: Laboratory Results - last 24 hr 05/25/21 05/26/21 05:20 04:11 WBC 11.8 H RBC 3.45 L Hgb 10.9 L Hct 31.6 L MCV 91.6 MCH 31.6 MCHC 34.5 RDW 13.2 Plt Count 224 MPV 11.3 H Immature Gran % (Auto) 0.3 Neut % (Auto) 76.6 H Lymph % (Auto) 14.7 L [place] % (Auto) 6.4 Eos % (Auto) 1.6 Baso % (Auto) 0.4 Lymph # (Auto) 1.74 [place] # (Auto) 0.8 H Eos # (Auto) 0.2 Baso # (Auto) 0.1 Abs Immat Gran (auto) 0.04 H Absolute Neuts (auto) 9.0 H Absolute Nucleated RBC 0.0 Nucleated RBC % 0.0 RPR Non-reactive OB - PN A/P Plan day: 1 Comments: Post Op LTCS - no problems, routine recovery Time Spent With Patient Time: Total time spent is greater than 50% in coordination of care (as documented) at patient's floor/unit and/or counseling patient: Exam Const: General: cooperative, healthy appearing, comfortable and no acute distress Resp: Auscultation: no crackles, no rales, no rhonchi and no wheezes Cardio: Rhythm: regular rhythm Heart sounds: no click and no murmurs GI: Inspection: non-distended Auscultation: normal bowel sounds Extrem: General: normal to inspection, no pedal edema and no calf tenderness
--- NOTE | 2021-05-26 08:20 | PC.NURSE ---
0764 - Infant to the nursery for a Doctor assessment with primary RN. Mother states has gone okay through the night. sometimes latches well and other times not so well. Her nipples are sore. There's some bruising to the nipples but intact. [id number] Consulted with patient to assess needs related to . Mother works well with her with encouragement. Reviewed working with infant, breast, nipples and how to protect the nipples with an optimal deep latch, good positioning, and good hand washing. Encouraged understanding the benefits of skin to skin, responding to feeding cues, frequencies of feeding 8-12 times in 24 hours (approximately 2-3 hours), duration of feedings, milk production, intake/output feeding sheet and signs of adequate intake encouraging swallowing at the breast. Reviewed positioning and alignment, supporting breast, off-centered (asymmetrical latch) and leading with the chin with big open wide gape. latched optimally to the left breast in football position for a few sucks but doesn't maintain effective latch. Education given to mother of how to visualize suck/swallow ratios and drinking at the breast. Mother states she has heard or visualized swallowing. Infant was unable to maintain latch without discomfort to mother. Nipple care reviewed with optimal latch and good positioning, comfort, healing with warm, wet washcloth to rinse breast, then leave open to air-dry, colostrum may be left on nipples to dry but have clean hands when touching the nipple/breast as needed. Resources used to facilitate learning were used from the visual handout/ tool. was placed skin to skin for mother and to regroup after 15 min unsuccessful attempt. Mother voiced understanding of the education shared, calling for assistance if the does not latch or if there is discomfort with . Reported to the primary RN.
[2021-05-26 08:35] VITALS: BP 108/69; PULSE 85; RESP 20; TEMP 36.8; O2SAT 97
[2021-05-26] MEDS: DOCUSATE SODIUM 100 MG CAPSULE PO ×2 (09:00→17:01)
[2021-05-26 09:30] VITALS: PULSE 85; RESP 20; O2SAT 97
--- NOTE | 2021-05-26 10:12 | WPDANLDPN2 ---
Anes-Prog Note L&D Date/Time: 05/26/21 10:12 Comfortable throughout: section Neuraxial method: epidural Epidural/Spinal procedure site: clean & non-tender Neuro status: Neuro function grossly intact. Cardiovascular status: normal Respiratory status: normal Airway patency: baseline Mental status: baseline Post-Op hydration status: normal Vital Signs: Last Vital Signs Temp 36.8 C 05/26/21 08:35 Pulse 85 05/26/21 08:35 Resp 20 05/26/21 08:35 BP 108/69 05/26/21 08:35 Pulse Ox 97 05/26/21 08:35 Pain score (VAS): 2 I/O: Intake & Output 05/25/21 05/26/21 05/26/21 23:59 07:59 15:59 Intake Total 480 1300 Output Total 3700 Balance 480 -2400 Post-procedural complaints: none Patient feedback: Patient satisfied with anesthetic care.
--- NOTE | 2021-05-26 10:13 | WPDANLDNPN2 ---
Anes-Prog Note L&D-Neuraxial Date/Time: 05/26/21 10:13 Neuraxial medications: intrathecal PF morphine Opiod-related complaints: none Patient feedback: Patient satisfied with post-operative pain management.
--- NOTE | 2021-05-26 10:19 | PC.NURSE ---
[id number] Parents state that has breastfed and latched twice since RN was present. Mother denies any pain. Parents are encouraged to call for RN assistance with if there is no latch, discomfort with latching or to have a latch assessed. Parents voiced understanding. Reported to primary RN.
[2021-05-26] MEDS: MULTIVIT/MIN/PREN/FOL AC/IRON TABLET 1 TAB PO (11:04)
--- NOTE | 2021-05-26 12:11 | PC.NURSE ---
1145 - Mother states breastfed without discomfort on the right breast in football position. Nipple appears to be slightly misshaped. Mother reviewed education regarding an optimal latch with infant. Mother voiced understanding of calling for a latch assessment, if infant doesn't latch or if there is discomfort with latching. Reported to primary RN.
[2021-05-26 20:00] VITALS: BP 104/68; PULSE 71; RESP 16; TEMP 36.4; O2SAT 97
[2021-05-26] MEDS: HYDROcodone/acetaminophen (*CRX) 10-325 MG TABLET 1 TAB PO (20:07)
[2021-05-27] MEDS: HYDROcodone/acetaminophen (*CRX) 5-325 MG TABLET 1 TAB PO ×2 (02:41→05:46)
[2021-05-27] MEDS: IBUPROFEN 600 MG TABLET PO (05:46)
--- NOTE | 2021-05-27 07:56 | PM.OBPNVD ---
OB - PN: Subj Subjective Date/time seen: 05/27/21 07:56 Patient comments: no complaints and pain well controlled OB - PN: Obj Data Labs CBC & Chem 7: 05/26/21 04:11 OB - PN A/P Plan day: 2 Plan: routine care and discharge home Time Spent With Patient Time: Total time spent is greater than 50% in coordination of care (as documented) at patient's floor/unit and/or counseling patient: Review of Systems Review of Systems: All systems reviewed & are unremarkable except as noted in HPI and below Exam Const: General: cooperative, healthy appearing and comfortable
--- NOTE | 2021-05-27 07:59 | PM.OBDSVD ---
DS: Admitting Diagnosis Discharge Date 05/27/21 Admitting Diagnosis primary cs LGA OB - DS: Summary OB Procedures : None OB Procedures Intrapartum: OB Procedures: : None Peripartum Data Procedures: Procedures Operation Date: 05/25/21 07:30 Actual Procedure Side Surgeon p Section Sherrill Stack MD Time Spent with Patient Time attestation: Total time spent providing and/or coordinating discharge services: Discharge Plan Discharge Attending physician on discharge: Sherrill Stack Discharging Clinician: Em Morales Patient Disposition: Home, Self-Care Activity: pelvic rest Diet: regular Discharge Instructions: Education: Mom and Baby Guide Given to: Mother Follow-Up: Call your delivering provider's office for an appointment to be seen in: 1 Week Mom and baby should come to the [facility] for the follow-up appointment. Appointment Date/Time: May 28, 2021 at 11:00 am What to expect at your follow-up visit: Blood Pressure Check Physical Assessment Call [phone] if you are unable to keep your appointment time. BREAST CARE: * Wear a snug supportive bra. * For engorgement discomfort: Breast Feeding: * Apply warm moist washcloths * Express milk as needed to relieve engorgement * Wear loose clothing * For sore nipples: * Identify correct latch-on * Apply warm moist washcloths before and after nursing * Air dry nipples after nursing * May apply Lansinoh cream to nipples ABDOMINAL INCISION: (if applicable) * Allow incision to air dry * Do NOT use lotions for powders on your incision * When showering, allow soap and water to run over the incision, but do not wash incision EPISIOTOMY/PERINEAL CARE: * Until bleeding stops, use your debby bottle after urinating * Change your pad frequently throughout the day * You may take sitz baths several times a day (fill your bathtub with warm water and soak for 20 minutes.) Do NOT bathe in the water * No tub baths until seen by your physician - You may shower ACTIVITY: * Rest as much as possible. * Do not exercise or lift anything heavier than your baby (such as laundry or other children.) * Avoid stairs or driving as much as possible. * Do not put anything into the vagina. No douching, tampons, or sexual activity until seen by physician. NOTIFY PHYSICIAN IF YOU HAVE ANY QUESTIONS OR IF ANY OF THE FOLLOWING SYMPTOMS OCCUR: * If your incision becomes red, swollen, or more painful than what you have experienced in the hospital. * If your vaginal bleeding becomes foul smelling. * If your vaginal bleeding becomes more heavy than a period or if your bleeding changes from pink to bright red. However, you may pass an occasional walnut-sized clot once or twice for the first week . * If you experience a sharp, shooting pain in your calves. * If you discover a hard, reddened area on your breast or if you experience flu-like symptoms. DIET: * Eat regular, well-balanced meals. * Drink plenty of fluids daily. If , drink to thirst. Patient Instructions: Antibiotic Form, Caring for Your Baby (DC), Your Baby (DC), (DC) Stand Alone Forms: General Discharge Information Follow-up/Referrals: Sherrill Stack MD [Physician] - 1 Week Discharge Medications: New hydrocodone-acetaminophen 5-325 mg Tablet 1 tablet PO Q3H PRN (Reason: Moderate Pain (4-6)) Qty: 30 RF: 0 ibuprofen 600 mg Tablet 600 mg PO Q6H PRN (Reason: Cramping) Qty: 30 RF: 0 Continued PNV cmb#95-ferrous fumarate-FA [] 28 mg iron- 800 mcg Tablet 1 tablet PO DAILY RF: 0 Discontinued aspirin 81 mg Capsule 81 mg PO DAILY RF: 0 Date of admission: 05/25/21 04:55 Primary Care Provider: PHYSICIAN,CAGER OPERATOR Admitting Provider: Sherrill Stack Attending physician on admission: Ricardo Stack
[2021-05-27 08:00] VITALS: BP 127/75; PULSE 90; RESP 18; TEMP 36.4; O2SAT 97
[2021-05-27 09:30] VITALS: PULSE 90; RESP 18; O2SAT 97
[2021-05-27] MEDS: DOCUSATE SODIUM 100 MG CAPSULE PO (09:44)
[2021-05-27] MEDS: HYDROcodone/acetaminophen (*CRX) 10-325 MG TABLET 1 TAB PO (09:44)
[2021-05-27] MEDS: SIMETHICONE 80 MG TAB.CHEW PO (09:44)
[2021-05-27] MEDS: MULTIVIT/MIN/PREN/FOL AC/IRON TABLET 1 TAB PO (09:44)
[2021-05-28 11:24] VITALS: BP 133/84; PULSE 73; RESP 18; TEMP 36.4; O2SAT 99
== END 2021-05-27 10:40 | disposition home or self-care (01) | DRG 788 ==
LOC: ANHLDR 04:58 → ANHOB2 11:42
PROVIDERS: Admitting Provider Obstetrics & Gynecology; Visit Provider Obstetrics & Gynecology
PROC: 10D00Z1 Extraction of Products of Conception, Low, Open Approach (ICD-10-PCS; CPT 59514; principal; 2021-05-25 07:30)
DX: O36.63X0 Maternal care for excessive fetal growth, third trimester, not applicable or unspecified (principal); Z37.0 Single live birth; Z3A.39 39 weeks gestation of pregnancy
CPT/HCPCS: 36415; 85025; 86592; 86850; 86900; 86901; A9270; J0131; J0690; J1885; J2274; J2370; J2590; J7120

== ENCOUNTER 2021-07-28 14:51 | Emergency (ER) | payer OTHER, SELFPAY ==
[2021-07-28 14:57] VITALS: BP 131/82; PULSE 75; RESP 16; TEMP 36.7; O2SAT 100
--- NOTE | 2021-07-28 15:40 | ED.URI ---
HPI - URI/Sore Throat General Chief Complaint: Upper Respiratory Infection Stated Complaint: SORE THROAT Time Seen by Provider: 07/28/21 15:34 Source: patient Mode of arrival: ambulatory Limitations: no limitations History of Present Illness HPI Narrative: Patient presents today with a 3-day history of sore throat, and 2-day history of headache. Also reports body aches on the day of onset of symptoms, but none today. Denies fever, cough, congestion, rhinorrhea, sore throat, difficulty swallowing. Denies sick contacts. She currently rates pain 5/10 and has been taking Tylenol with mild relief. Reports she also took a home COVID-19 test after 48 hours of symptoms that was negative at home. She has been vaccinated against COVID-19. Related Data Home Medications Medication Instructions Recorded Confirmed vit no.95-ferrous 1 tablet PO DAILY 04/14/19 05/01/21 fumarate 28 mg-folic acid 800 mcg tablet () Allergies Allergy/AdvReac Type Severity Reaction Status Date / Time tioconazole Allergy Other Verified 05/01/21 15:52 Review of Systems Review of Systems: CONSTITUTIONAL: Denies body aches, fever, chills, or sweats. EYES: Denies visual changes, redness, or discharge. ENT: Denies rhinorrhea, congestion, or otalgia.+ Sore throat CARDIOVASCULAR: Denies chest pain, palpitations, or edema. RESPIRATORY: Denies cough or dyspnea. GASTROINTESTINAL: Denies abdominal pain, nausea, vomiting, or diarrhea. GENITOURINARY: Denies dysuria or hematuria. SKIN: Denies rash, itching, or wounds. MUSCULOSKELETAL: Denies back pain, joint pain, or myalgia. NEUROLOGIC: Denies numbness, tingling, or weakness.+ Headache PSYCH: Denies depression or anxiety. [facility] Family History Family History Other Unknown family medical history Social History Social History Smoking status: Never smoker Second hand tobacco smoke exposure: No Substance use: never Spiritual care concerns: No Comments At time of signature, I have reviewed and agree with nursing past medical, surgical, social and family history unless otherwise noted. Please see nursing chart for further information. There is no relevant family history pertinent to the presenting complaint Exam Narrative: GENERAL: Well-appearing, well-nourished, and in no acute distress. HEAD: Normocephalic, atraumatic. EYES: EOMI. No redness or drainage. Conjunctivae normal. ENT: Mucous membranes pink and moist. Nares clear. No rhinorrhea. TMs normal bilaterally. Throat erythematous with mild edema. No exudate. Uvula midline. NECK: Normal AROM. Supple. No lymphadenopathy. CHEST: No respiratory distress. Clear to auscultation. HEART: Regular rate and rhythm. No murmur appreciated. Normal peripheral pulses. EXTREMITIES: Normal range of motion. No edema. SKIN: Warm, dry, no rash. Capillary refill normal. Normal skin turgor. NEURO: No focal deficits. Alert and oriented x3. Gait steady. PSYCH: Normal affect. No signs of depression or anxiety. Course Course Level of Care: Express Care Visit Vital Signs Vital signs: Vital Signs Temperature 98.0 F 07/28/21 14:57 Pulse Rate 75 07/28/21 14:57 Respiratory Rate 16 07/28/21 14:57 Blood Pressure 131/82 07/28/21 14:57 Pulse Oximetry 100 07/28/21 14:57 Oxygen Delivery Room Air 07/28/21 14:57 Temperature 98.0 F 07/28/21 14:57 Pulse Rate 75 07/28/21 14:57 Respiratory Rate 16 07/28/21 14:57 Blood Pressure 131/82 07/28/21 14:57 Pulse Oximetry 100 07/28/21 14:57 Oxygen Delivery Room Air 07/28/21 14:57 Reviewed. Pt has been instructed to follow up with her PCP regarding her elevated blood pressure today. MDM - URI/Sore Throat Differential Diagnosis Differential diagnosis: Likely upper respiratory infection, sinusitis, viral infection, pharyngitis and other (S
== END 2021-07-28 15:52 | disposition home or self-care (01) ==
PROVIDERS: Emergency Provider Nurse Practitioner
DX: J06.9 Acute upper respiratory infection, unspecified (principal); Z86.16 Personal history of COVID-19
CPT/HCPCS: 87081; 87880; 99213; G0463